=== PATIENT | female | born 1955 | race Two or more races ===

== ENCOUNTER 2022-10-20 12:45 | Emergency (ER) | payer OTHER ==
[~2022-10-20] VITALS: Ht 143.5 cm; Wt 62.6 kg
[2022-10-20] MEDS ORDERED: SYNTHROID50 MCG (13:03)
[2022-10-20] MEDS ORDERED: ZESTRIL2.5 MG (13:03)
== END 2022-10-20 13:19 | disposition home or self-care (01) ==
LOC: ER 12:45
DX: S61.412A Laceration without foreign body of left hand, initial encounter (principal); W45.8XXA Other foreign body or object entering through skin, initial encounter; Y93.89 Activity, other specified; Y92.89 Other specified places as the place of occurrence of the external cause; Y99.9 Unspecified external cause status